=== PATIENT | male | born 1955 | race Caucasian/White ===

== ENCOUNTER 2018-03-22 09:58 | Outpatient (CLI) | payer OTHER, SELFPAY ==
[2018-03-23 10:04] LABS: PSA, Screening 0.6 ng/ml (0-4.5)
== END 2018-03-22 10:18 ==
LOC: LBO 09:59 → LOS 13:50
PROVIDERS: PCP Emergency Medicine; Visit Provider Emergency Medicine
DX: N40.0 Benign prostatic hyperplasia without lower urinary tract symptoms (principal); Z12.5 Encounter for screening for malignant neoplasm of prostate
CPT/HCPCS: 36415; 84153

== ENCOUNTER 2018-09-22 11:02 | Outpatient (CLI) | payer OTHER, SELFPAY ==
[2018-09-22 13:16] LABS: TSH 3.36 uIU/mL (0.358-3.74)
== END 2018-09-22 11:22 ==
PROVIDERS: PCP Emergency Medicine; Visit Provider Emergency Medicine
DX: E03.9 Hypothyroidism, unspecified (principal)
CPT/HCPCS: 36415; 84443

== ENCOUNTER 2019-03-28 07:00 | Outpatient (CLI) | payer OTHER, SELFPAY ==
[2019-03-28 11:11] LABS: HCT 45.8 % (40.0-50.0); HGB 15.7 g/dL (13.5-17.5); Mean Corp. HGB Concentration 34.3 g/dL (32.0-36.0); Mean Corpuscular Volume 84.5 fL (80-95); Mean Platelet Volume 10.4 fL (8.0-11.0); Platelet Count 205 x1000/uL (130-400); RBC 5.42 m/cumm (4.50-6.00); RBC Distribution Width 13.7 % (11.8-14.1); White Blood Cell Count 7.63 k/cumm (4.4-10.8)
[2019-03-28 11:58] LABS: Hemoglobin A1C 5.9 % (4.5-6.2)
[2019-03-28 12:29] LABS: ESR 8 mm/hr (1-20)
[2019-03-28 15:21] LABS: ALT 28 U/L (16-63); AST 12 U/L (15-37); Albumin 4.5 g/dL (3.4-5.0); Alkaline Phosphatase 76 U/L (46-116); Anion Gap 8.9 mmol/L (3-11); BUN 22 mg/dL (7-18); Bilirubin, Total 0.5 mg/dL (0.2-1.0); C-Reactive Protein 0.16 mg/dL (0.0-0.3); CO2 29.1 mmol/L (21.0-32.0); CREATININE 0.95 mg/dL (0.70-1.30); Calcium 9.2 mg/dL (8.5-10.1); Chloride 103 mmol/L (98-107); Glucose 104 mg/dL (70-100); Potassium 3.8 mmol/L (3.5-5.1); Sodium 141 mmol/L (136-145); TSH 2.87 uIU/mL (0.36-3.74); Total Protein 8.2 g/dL (6.4-8.2)
[2019-03-28 16:39] LABS: Vitamin B12 960 pg/mL (193-986)
[2019-03-29 11:19] LABS: Lyme Ab w Rflx to Lyme Confirm Negative
[2019-03-29 13:46] LABS: Albumin 58.7 % (55.8-66.1); Total Protein 8.2 g/dl (6.3-8.2)
== END 2019-03-28 07:20 ==
PROVIDERS: PCP Emergency Medicine; Visit Provider Emergency Medicine
DX: G62.9 Polyneuropathy, unspecified (principal); E03.9 Hypothyroidism, unspecified; M25.50 Pain in unspecified joint; R07.1 Chest pain on breathing; E11.9 Type 2 diabetes mellitus without complications
CPT/HCPCS: 36415; 80053; 85027; 85652; 82607; 83036; 84165; 84443; 86140; 86618

== ENCOUNTER 2020-02-05 02:00 | Outpatient (CLI) | payer MEDICARE, SELFPAY ==
[2020-02-05 09:10] LABS: Anion Gap 11.3 mmol/L (3-11); BUN 14 mg/dL (7-18); CO2 27.7 mmol/L (21.0-32.0); CREATININE 1.06 mg/dL (0.70-1.30); Calculated LDL 109 mg/dL (<100); Chloride 103 mmol/L (98-107); Cholesterol 218 mg/dL (<200); Glucose 182 mg/dL (74-106); HDL Cholesterol 35 mg/dL (40-60); Potassium 3.7 mmol/L (3.5-5.1); Sodium 142 mmol/L (136-145); TSH 3.74 uIU/mL (0.36-3.74); Triglyceride 372 mg/dL (<150)
== END 2020-02-05 02:20 ==
PROVIDERS: PCP Emergency Medicine; Visit Provider Emergency Medicine
DX: E03.9 Hypothyroidism, unspecified (principal); I10 Essential (primary) hypertension
CPT/HCPCS: 36415; 80048; 80061; 84443

== ENCOUNTER 2020-02-07 08:32 | Outpatient (CLI) | payer MEDICARE, SELFPAY ==
[2020-02-07 13:11] LABS: Glucose 98 mg/dL (74-106)
== END 2020-02-07 08:52 ==
PROVIDERS: PCP Emergency Medicine; Visit Provider Emergency Medicine
DX: E11.65 Type 2 diabetes mellitus with hyperglycemia
CPT/HCPCS: 36415; 82947; 83036

== ENCOUNTER → 2020-03-28 10:01 | Outpatient (BNVA) | payer MEDICARE, OTHER, SELFPAY | PROVIDERS: PCP Emergency Medicine; Referring Provider Emergency Medicine; Visit Provider Physical Therapy Assistant | DX: Z12.11 Encounter for screening for malignant neoplasm of colon (principal); I10 Essential (primary) hypertension ==

== ENCOUNTER 2020-04-18 11:21 | Day surgery (SDC) | payer OTHER, SELFPAY ==
[2020-04-18 11:40] VITALS: BP 133/88; PULSE 75; RESP 16; TEMP 36.2; O2SAT 99
[2020-04-18] MEDS: Lactated Ringers 1,000 ML 80 ML IV (11:55)
--- NOTE | 2020-04-18 13:42 | W.COLOREPORT ---
Date of service: 04/18/20 Time of Service: 13:42 Colonoscopy Report Date of procedure: 04/18/20 Pre-op diagnosis general: crc screen Post-op diagnosis procedure note: other (polyps/diverticula ) Procedure: ce w/ polypectomy Surgeon: Catherine Fraga Anesthesia proc note operative: GETA Estimated blood loss (mL): 1 Pathology: other Complications: None Disposition: same day Prep: Miralax/Dulcolax Retraction Time: 12 mins Procedure Description: After informed consent was obtained the patient was taken to the procedure room and placed in a left decubitous position. Monitors were applied and a time out was done. The patients name, date of , procedure, allergies to medications and metal in their body was reviewed. The patient was then sedated. Once sedated and comfortable a rectal exam was done. External exam was normal. Internal exam revealed a normal sphincter tone and no palpable masses. The prostate. The scope was then introduced and retrofelexed. Grade I internal hemorrhoids were identified. The scope was then advanced to the cecum w/out difficulty. The TI and appendiceal orifice were identified. The prep was good. The scope was then slowly retracted over 12] minutes back into the rectum. Polyps were removed at 20cm- <5mm i size. This is removed with a cold biting forcep. All specimen is retrieved and no bleeding is noted. He has moderate diverticular disease confined to the sigmoid colon. There is no signs of active bleeding or infection. The scope was removed and the patient was woken up and taken back to Same day surgery in stable condition. The patient tolerated the procedure well and there were no immediate complications. Follow up: The patient should follow up in 5 years-path pd, patient is still healthy from an anesthetic standpoint, or unless they develop changes in bowel habits or other new gastrointestinal complaints.
--- NOTE | 2020-04-18 13:44 | PDOC.DSDIS_ITS ---
Discharge Plan Disposition Patient Disposition: HOME Condition: Good Discharge Details Reason For Visit: colon scope Attending Provider: Catherine Fraga Primary Care Provider: Brian Salazar Home Meds and New Rx's Prescriptions: Continued ketoconazole 2 % cream 1 applic TP DAILY RF: 0 losartan 50 mg tablet 50 mg PO DAILY Qty: 90 RF: 3 levothyroxine 125 mcg capsule 125 mcg PO DAILY Qty: 90 RF: 3 hydrochlorothiazide 25 mg tablet 25 mg PO DAILY Qty: 90 RF: 3 Discontinued polyethylene glycol 3350 17 gram/dose powder 238 g PO ONCE Qty: 238 RF: 0 bisacodyl [Dulcolax (bisacodyl)] 5 mg tablet,delayed release (DR/EC) 5 mg PO ONCE Qty: 4 RF: 0 Discharge Instructions Additional Instructions: Findings:polyp x1 diverticular Dx Follow up: We will send a letter with the pathology results from the polyp and when to repeat the colonoscopy, usually in 2 to 3 weeks. Follow a high-fiber diet and avoid straining to move the bowels. Please call if you develop: fevers >101.5 Nausea or Vomiting Abdominal pain that is not transient DAY SURGERY UNIT POST COLONOSCOPY INSTRUCTIONS 1. Because there will be medication in your system for the next 24 hours, you may feel a little sleepy. Your coordination will be affected. Therefore: a. Do not drive or operate dangerous equipment for 24 hours. b. Do not drink alcohol beverages for 24 hours (not even beer). c. Plan to go home and rest for the day. 2. Generally there are no restrictions on your activity after a day or so has gone by, but you may feel a bit fatigued for a few days. 3 After you arrive home you may have a light meal and return to a normal diet as you can tolerate it without feeling sick to your stomach. 4. After surgery, you may feel pain or discomfort. This should be only transient, but if it persists please contact your doctor. 5. If there are any questions regarding the findings of your procedure, please feel free to contact your doctor. 6. If you are unable to contact your doctor with a problem, contact the hospital at [phone]. 7. Continue all your regular medications unless directed otherwise. I understand the above instructions and have no questions. Signature of Patient or Responsible Adult Escort Date/Time Name of Responsible Adult Escort Signature of Nurse Date/Time DIVERTICULAR DISEASE OVERVIEW ? A diverticulum is a pouch-like structure that can form through points of weakness in the muscular wall of the colon (ie, at points where blood vessels pass through the wall). Diverticulosis affects men and women equally. The risk of diverticular disease increases with age. It occurs throughout the world but is seen more commonly in developed countries. WHAT IS DIVERTICULAR DISEASE? Diverticulosis ? Diverticulosis merely describes the presence of diverticula. Diverticulosis is often found during a test done for other reasons, such as flexible sigmoidoscopy, colonoscopy, or barium enema. Most people with diverticulosis have no symptoms and will remain symptom free for the rest of their lives. A person with diverticulosis may have diverticulitis, or diverticular bleeding. Diverticulitis ? Inflammation of a diverticulum (diverticulitis) occurs when there is thinning and breakdown of the diverticular wall. This may be caused by increased pressure within the colon or by hardened particles of stool, which can become lodged within the diverticulum. The symptoms of diverticulitis depend upon the degree of inflammation present. The most common symptom is pain in the left lower abdomen. Other symptoms can include nausea and vomiting, constipation, diarrhea, and urinary symptoms such as pain or burning when urinating or the frequent need to urinate. Diverticulitis is divided into simple and complicated forms. ?Simple diverticulitis, which accounts for 75 percent of cases, is not associated with complications and typically responds to medical treatment without surgery. ?Complicated diverticulitis occurs in 25 percent of cases and usually requires surgery. Complications associated with diverticulitis can include the following: ?Abscess ? a localized collection of pus ?Fistula ? an abnormal tract between two areas that are not normally connected (eg, bowel and bladder) ?Obstruction ? a blockage of the colon ?Peritonitis ? infection involving the space around the abdominal organ ?Sepsis ? overwhelming body-wide infection that can lead to failure of multiple organs Diverticular bleeding ? Diverticular bleeding occurs when a small artery located within a diverticulum is eroded and bleeds into the colon. Diverticular bleeding usually causes painless bleeding from the rectum. In approximately 50 percent of cases, the person will see maroon or bright red blood with bowel movements. Is bleeding with a bowel movement normal? ? It is not normal to see blood in a bowel movement; this can be a sign of several conditions, most of which are not serious (eg, hemorrhoids) but some of which are serious and require immediate treatment. Anyone who sees blood after a bowel movement should consult with their healthcare provider to determine if further testing or evaluation is needed. DIVERTICULOSIS AND DIVERTICULITIS DIAGNOSIS ? Diverticulosis is often found during tests performed for other reasons. ?Barium enema ? This is an x-ray study that uses barium in an enema to view the outline of the lower intestinal tract. This is an older test and has been largely replaced by computed tomography (CT) scan. ?Flexible sigmoidoscopy ? This is an examination of the inside of the sigmoid colon with a thin, flexible tube that contains a camera. ?Colonoscopy ? This is an examination of the inside of the entire colon. ?CT scan ? A CT scan is often used to diagnose diverticulitis and its complications. If diverticulitis (not just diverticulosis) is suspected, the above three tests should not be used because of the risk of perforation. TREATMENT Diverticulosis ? People with diverticulosis who do not have symptoms do not require treatment. However, most clinicians recommend increasing fiber in the diet, which can help to bulk the stools and possibly prevent the development of new diverticula, diverticulitis, or diverticular bleeding. Fiber is not proven to prevent these conditions in all patients but may help to control recurrent episodes in some. Increase fiber ? Fruits and vegetables are a good source of fiber. Fiber content of packaged foods can be calculated by reading the nutrition label. Seeds and nuts ? Patients with diverticular disease have historically been advised to avoid whole pieces of fiber (such as seeds, corn, and nuts) because of concern that these foods could cause an episode of diverticulitis. However, this belief is completely unproven. We do not suggest that patients with diverticulosis avoid seeds, corn, or nuts. Diverticulitis ? Treatment of diverticulitis depends upon how severe your symptoms are. Home treatment ? If you have mild symptoms of diverticulitis (mild abdominal pain, usually left lower abdomen), you can be treated at home with a clear liquid diet and oral antibiotics. However, if you develop one or more of the following signs or symptoms, you should seek immediate medical attention: ?Temperature >100.1?F (38?C) ?Worsening or severe abdominal pain ?An inability to tolerate fluids Hospital treatment ? If you have moderate to severe symptoms, you may be hospitalized for treatment. During this time, you are not allowed to eat or drink; antibiotics and fluids are given into a vein. If you develop an abscess of the colon, you may require drainage of the abscess (usually performed by placing a drainage tube across the abdominal wall) or by surgically opening the affected area. Surgery ? If you develop a generalized infection in the abdomen (peritonitis), you will usually require an emergency operation. A two-part operation may be necessary in some cases. ?The first operation involves removal of the diseased colon and creation of a colostomy. A colostomy is an opening between the colon and the skin, where a bag is attached to collect waste from the intestine. The lower end of the colon is temporarily sewed closed to allow it to heal. ?Approximately three to six months later, a second operation is performed to reconnect the two parts of the colon and close the opening in the skin. You are then able to empty your bowels through the rectum. Sometimes patients require up to a year to recover from the first operation, depending on how sick they were. In non-emergency situations, the diseased area of the colon can be removed and the two ends of the colon can be reconnected in one operation, without the need for a colostomy. Surgery versus medical therapy ? An operation to remove the diseased area of the colon may be necessary if you do not improve with medical therapy. After an episode of uncomplicated diverticulitis, elective surgery is generally not required as the risk of another attack or requiring emergency surgery is low. However, patients with persistent symptoms attributable to diverticulitis, a history of complicated diverticulitis, or a compromised immune system should be evaluated for possible surgery to prevent another attack. In such patients, another attack has been associated with a higher risk of complications or . Of course, the decision will also depend in part upon your other medical conditions and ability to undergo surgery. In many cases, an elective operation can be performed laparoscopically, using small incisions, rather than the typical vertical (up and down) abdominal incision. Laparoscopic surgery usually allows you to recover more quickly and shortens the hospital stay. After diverticulitis resolves ? After an episode of diverticulitis resolves, if you have not had a recent colonoscopy, the entire length of the colon should be evaluated to determine the extent of disease and to rule out the presence of abnormal lesions such as polyps or cancer. Recommended tests include colonoscopy, barium enema and sigmoidoscopy, or CT colonography. Diverticular bleeding ? Most cases of diverticular bleeding resolve on their own. However, some people will need further testing or treatment to stop bleeding, which may include a colonoscopy, angiography (a treatment that blocks off the bleeding artery), bleeding scan, or surgery. DIVERTICULAR DISEASE PROGNOSIS Diverticulosis ? Over time, diverticulosis may cause no problems or it may cause episodes of bleeding and/or diverticulitis. Approximately 15 to 25 percent of people with diverticulosis will develop diverticulitis, while 5 to 15 percent will develop diverticular bleeding. Diverticulitis ? Approximately 85 percent of people with uncomplicated diverticulitis will respond to medical treatment, while approximately 15 percent of patients will need an operation. After successful treatment for a first attack of diverticulitis, one-third of patients will remain asymptomatic, one- third will have episodic cramps without diverticulitis, and one-third will go on to have a second attack of diverticulitis. The prognosis tends to remain similar following a second attack of diverticulitis. Only 10 percent of people remain symptom-free after a second attack. Subsequent attacks tend to be of similar severity, not increasing in severity as previously believed. High Fiber Diet What is Dietary Fiber? All fiber comes from plants, bushes, rosy or trees. Of course, the ones that we eat provide us with fruits, vegetables and grains. There are many different types of fiber but the three that are most important to the health of the body are: Insoluble Fiber This fiber does not dissolve in water, nor is it fermented by the bacteria residing in the colon. Rather, it retains water and in so doing, helps to promote a larger, bulkier and more regular bowel activity. This, in turn, may be important in preventing disorder such as diverticulosis and hemorrhoids, and in sweeping out certain toxins and cancer causing carcinogens. Sources of insoluble fiber are: ? whole grain wheat and other whole grains ? corn bran, including popcorn, unflavored and unsweetened ? nuts and seeds ? potatoes and the skins from most fruits from trees such as apples, bananas and avocados ? many green vegetables such as green beans, zucchini, celery and cauliflower ? some fruit plants such as tomatoes and kiwi Soluble Fiber These fibers are fermented or used by the colon bacteria as a food source or nourishment. When these good bacteria grow and thrive, many health benefits occur in both the colon and the body. Soluble fiber is present in some degree in most edible plant foods, but the ones with the most soluble fiber include: ? legumes such as peas and most beans, including soybeans ? oats, rye and barley ? many fruits such as berries, plums, apples bananas and pears ? certain vegetables such as broccoli and carrots ? most root vegetables ? psyllium husk supplement products Prebiotic Soluble Fiber These are relatively newly discovered soluble plant fibers. The technical name for this fiber is inulin or fructan. When these soluble fibers are fermented by the good colon bacteria, some further significant health benefits have been shown to occur by research in many medical centers. These soluble prebiotic fibers occur in significant amounts in: ? asparagus ? yams ? onions ? garlic ? bananas ? leeks ? agave ? chicory and other root vegetables such as [place] artichokes ? wheat, rye and barley (smaller amounts) Benefits of a High Fiber Diet The health benefits of a high fiber diet, consumed on a regular basis and reaching recommended amounts (below), are now fairly well-defined. There are some additional benefits in the early research stage with the prebiotic soluble fibers. What is now known regarding a high fiber diet include: Bowel Regularity A high fiber diet promotes regularity with a softer, bulkier and regular stool pattern. This decreases the chance of hemorrhoids, diverticulosis and perhaps colon cancer. Cholesterol and Reduced Triglycerides The soluble fibers are the ones that will reduce cholesterol levels when used on a regular basis. Psyllium husk and prebiotic soluble fiber will also reduce cholesterol. They may also reduce the incidence of coronary heart disease. Oats, flax seeds and legumes or beans are the recommended fibers. Colon Polyps and Cancer It is still not certain if a high fiber diet helps prevent colon cancer. Considerable research suggests that this may occur. Certainly it makes sense to increase regularity and so speed the movement of cancer causing carcinogens through the bowel. In addition, reducing a heavy meat diet reduces the bile flow from the liver in a favorable way. This, too, reduces the amount of carcinogens that reach and are manufactured in the colon. Finally, a high fiber diet, including prebiotic soluble fiber, increases the integrity and health of the wall of the colon. The risk of cancer may be reduced. Colon Wall Integrity A high fiber diet changes the bacterial makeup of the colon toward a more favorable balance. For instance, it is known that those people with obesity, diabetes type 2 and inflammatory bowel disease have a predominance of bad bacteria in the colon. This, in turn, may render the bowel wall weak and allow bacteria and, indeed, even toxins to seep through. A high fiber diet with a modest reduction in animal and meat products may return the bacterial makeup to a more positive balance. This, in particular, has been seen when the soluble fiber prebiotics are added to the diet. Blood Sugar Soluble fiber such as in legumes (beans), oats and in prebiotic fibers slows the absorption of blood sugar and so helps regulate the sugar in the blood. Insoluble fiber on a regular basis is associated with reduced risk of type 2 diabetes. Weight Loss High fiber diets are more filling and give a sense of fullness sooner than an animal and meat based diet does. In addition, the soluble prebiotic fibers have been shown to turn off the hunger hormones produced in the wall of the gut and to increase the hormones that give a sense of fullness. Those hormones are made in the wall of the gut. New medical research has shown that the bacterial makeup in the colon in overweight people is abnormal to the extent that they manufacture and absorb almost twice the number of calories through the colon wall as do normals. Prebiotic fibers (below) will help change this hormonal balancein a favorable way. Bacteria and the Function of the Colon The colon finishes the digestive process. Hopefully, the waste products move through in a nice regular manner. Insoluble fibers help this process by retaining water and so producing a bulkier, softer stool, which is easy to pass. The additional role of the colon is to provide a home for an enormous number of micro-organisms, mostly bacteria. Recent research has shown that there are over 1,000 species of bacteria with a total bacterial count ten times the number of cells in the body. These bacteria play a major role in keeping the colon wall itself healthy. In addition, these good bacteria produce a very strong immune system for the body. They significantly increase calcium absorption and bone density. They provide other documented benefits. It is the soluble fibers in the diet that are so effective in stimulating the growth of good colon bacteria. How Much is Enough? The amount of fiber in food is measured in grams. National nutritional authorities recommend the following amounts of dietary fiber daily. Under Age 50 Over Age 50 Men 38 grams 30 grams Women 25 grams 21 grams For a week or so, it is best to tally the amount of fiber you are consuming. Boxed and packaged foods will have the amount of fiber per serving on the nutrition label. Which Fibers and Which Foods are Best? As noted, healthy fiber is only found in plants. The three major categories are whole grains, fruits and vegetables. Whole Grains Wheat, oats, barley, wild or brown rice, amaranth, buckwheat, bulgur, corn, millet, quinoa, rye, sorghum, teff and triticals. By far, wheat, oats and wild or brown rice are most common. Always buy whole grain products. White bread, baked goods and rolls almost always are made from wheat flour. Wheat flour is white because most of the fiber, vitamins and other nutrients have been removed. Try not buy enriched grains. What this means is that simple white flour has had vitamins added to it by the pinball machine repairer. The word, enriched, implies a good and healthy product. On the contrary, enriched means that most of the fiber has been removed and a few vitamins added. Fruits Fruits come from trees such as apple and pear or from bushes or rosy. You should eat a wide variety of fruits, preferably with every meal. In many cases, the skin of a fruit such as apple will contain much of the insoluble fiber while the pulp contains most of the soluble fiber. To the extent possible, buy organic fruits as these will have little or no pesticides. Always wash fruit. Vegetables Eat a wide variety of vegetables. They should be a mainstay of lunch and d inners. Frozen vegetables retain as much nutrition and fiber as fresh vegetables. As with fruit, try to buy organic to reduce any residual pesticide ingestion. Wash fresh vegetables thoroughly. Cruciferous vegetables such as broccoli, [place] sprouts and cauliflower contain certain chemicals such as sulforaphane. This substance has very strong anti-cancer properties and should be eaten frequently. Legumes, Beans, Peas and Soybeans These vegetables have plenty of soluble fiber and should be part of a varied vegetable intake. Beans, in particular, contain a certain type of fiber that may lead to harmless gas or bloating. Nuts and Seeds These are rich sources of fiber and are a good substitute for sweets such as candies and baked sweet goods. While nuts and seeds are rich in fiber, they also contain vegetable fat and so can and do add calories. Read the Labels As noted, fresh and frozen foods are usually better. They have good nutrition and few, if any, chemicals added to them. When buying packaged foods and, in particular grains, look for three things: ? The first word on the label should be whole, such as whole wheat or whole grain. ? Check out the calories and the amount of fiber in a serving. ? How many and what other additives or chemicals are added. Fewer is always better. Do you know what each additive does? Some are added not for the benefit of the resident buyer but rather for manufacturers. These could and do include sugar, artificial flavor, chemicals to prevent oxidation and spoilage, emulsifiers to blend the product. You have to be a road mender. Fiber Facts, Nuggets and Pearls ? For breakfast you can easily get the day started well by using a high fiber, whole grain cereal. Check the labels. Add fruit such as blueberries and bananas. If you are an egg eater, use whole wheat or grain toast. Adding wheat germ gives you a good fiber kick. ? Always use whole grain or wheat with rolls and sandwiches. Does your fast food store not have them? Perhaps you look elsewhere. Eating an occasional black villaseñor or veggie burger provides variety. ? Snacks should consist of fruit and/or nuts. While nuts are loaded with fiber, they are an energy rich food, meaning they have a lot of calories in a small packet. ? Fruit juices should contain pulp. Clear juices such as clear orange, pear or apple juice contain little fiber and have a lot of fructose. Prune juice is usually high in fiber. ? Homemade soups ? adding fresh or frozen vegetables to a chicken or vegetable stock is a good way to start homemade soup. ? Salads ? adding cooked and then chilled vegetables provide great flavoring to almost any salad. Remember, a martin salad has lots of cooked corn in it. Small slices of apples or oranges and nuts such as chopped walnuts or sliced almonds always adds taste, variety and fiber to almost any salad. ? Fruit ? Try to eat fruit of some type with almost every meal. ? Rethink how you place the various foods on your dinner plate. Reducing the portions of the meat or animal food portion to the side with equal or more portions of vegetables, legumes and fruits portion always allows for more fiber. There was never anything magic about making the meat or animal food portion the main part of the dinner plate. Eating from smaller plates can, over time, trick your mind and group home habit of using a dinner plate. Again, there is nothing magic in an 11, 12, or 13 inch dinner plate. Fiber Supplements There are a variety of fiber supplements available on the food or pharmacy shelves. Psyllium This soluble plant fiber has been used in [place] for over 2,000 years. It is a soluble fiber with mucilage in it. This acts to retain a lot of water and also is fermented by colon bacteria. When 7 grams a day are used, it does lower cholesterol. Metamucil in various forms is psyllium. Methyl Cellulose All the cellulose products come from finely ground wood chips which are then treated in a variety of ways such as boiling in acids. Methyl cellulose is an i nsoluble fiber which does dissolve in water. It is also an emulsifier, meaning it blends oils and water. Citrucel is methyl cellulose (MC). MC may not be appropriate for Crohn?s disease or ulcerative colitis as several medical studies have shown that certain emulsifiers dissolve the mucous lining of the colon in animals prone to Crohn?s disease. This then allows bacteria to invade the underlying tissue. Inulin Inulin is a soluble prebiotic fiber found in many foods and which are fermented mostly in the left side of the colon. It is available in a supplement as generic inulin and in Fiber Choice. Oligofructose FOS These are also prebiotic fibers. They are fermented very quickly in the right side of the colon. Prebiotin This product is a combination of oligofructose, which feeds the bacteria in the right side of the colon and inulin, which does the same in the left side of the colon. There seems to be a benefit for this particular formula based on medical research. Prebiotic Soluble Fiber These may be the healthiest of all the soluble fibers. They grow in many plants and have had a great deal of research done on them in the last 10-15 years. These fibers are found in asparagus, yams and other root vegetables such as chicory, garlic, onion, leeks and in smaller amounts in wheat. This research has shown the following: ? Increase in good and decrease in bad colon bacteria ? Increase calcium absorption and enhanced bone mass ? Enhanced immune system ? Appetite and weight control by changing the hormone appetite signals to the brain ? May decrease colon cancer incidence ? Reduce or correct a leaky colon Eating a wide variety of plant food up to the recommended amount will likely give you enough prebiotic fiber. Supplements such as Prebiotin can be added to the diet. Short Chain Fatty Acids (SCFA) Some rather remarkable research findings have shown that one of the benefits of ingesting a lot of soluble fiber, in particular the prebiotic ones, results in larger amounts of SCFAs in the colon. These SCFAs are made by the good bacteria in the colon such as Bifidobacter and Lactobacillus. These small molecules have been shown to do the following: ? Enhance the health and integrity of the colon wall ? Provide nourishment for the cells that actually line the colon ? Increases the acidity of the colon which is a very real health benefit ? Stabilize blood sugar for diabetics ? Reduce blood cholesterol and triglyceride ? Significantly enhance immunity ? May be a benefit for Crohn?s disease and ulcerative colitis patients Fiber and Gas Everyone has intestinal gas and that is a good thing. It means that bacteria, hopefully the good ones, are thriving. The normal amount of flatus passed each day depends on sex and what is eaten. The normal number of flatus is 10-20 times a day. When the bacteria that make intestinal gases are growing, it also means that other good bacteria are using the same fibers to grow and produce multiple health benefits, including the production of healthy short-chain fatty acids. These substances are produced quietly in the colon and produce many health-related outcomes. Soluble fiber should always be used in a gradual manner. If too much is consumed at any one time, then excess, but harmless, intestinal gas can occur. People with irritable bowel syndrome are particularly prone to bloating and mild cramping. In this instance, soluble fiber in the diet or supplement should be used in small doses and increased gradually. Finally, prebiotic fibers tend to cause the production of short-chain fatty acids which acidify the colon. This, in turn, reduces or stops the growth of bacteria that make the smelly hydrogen sulfide gases that produce noxious flatus. People who consume many vegetables with prebiotics or take a prebiotic fiber supplement often have non-odoriferous flatus. Fiber and Irritable Bowel Syndrome Irritable bowel syndrome (IBS) is one of the most common disorders of the lower digestive tract. The symptoms of IBS can be quite varied. They can be a mix of several symptoms such as constipation, diarrhea, crampy abdominal discomfort, bloating and gas. An attack of IBS can be triggered by emotional tension and anxiety, poor dietary habits and certain medications. It is now known that infections in the intestine can lead to long-term IBS symptoms. Increased amounts of fiber in the diet can help relieve the symptoms of irritable bowel syndrome by producing soft, bulky stools. This helps to normalize the time it takes for the stool to pass through the colon. Recent medical research with newer techniques has shown some surprising and dramatic findings for IBS patients. Specifically, there is a very significant and abnormal shift of bacteria from those that provide health benefits to those bad bacteria that we really do not want in the gut. The technical name for this bad group of bacteria is called Firmicutes. Along with this abnormal bacterial collection, there is a smoldering low-grade inflammation in the gut wall that may contribute to symptoms. The goal for IBS patients should be to gradually increase the soluble dietary fibers in the diet so as to promote the growth of good bacteria and so suppress the bad ones along with the associated inflammation. IBS patients need to be careful of the amount of soluble fiber they consume. The reason for this is that, while the good colon bacteria thrive on these fibers and produce health benefits, other gas-forming bacteria may generate excessive but harmless gas and subsequent bloating. Thus, soluble plant fibers or a dietary prebiotic supplement should be taken in small initial doses and then gradually increased to tolerance. Fiber and Colon Polyps/Cancer Colon cancer is a major health problem. This disease is most common in Western cultures. It is not seen very often in rural cultures where the diet is mostly plant based. Usually, colon cancer starts out as a colon polyp, a benign mushroom-shaped growth. In time it grows, and in some people it becomes cancerous. Colon cancer is usually always curable if polyps are removed when found or if surgery is performed at an early stage. It is now known that people can inherit the risk of developing colon cancer, but diet is important, too. As noted, there is a very low rate of colon cancer in residents of countries where grains are unprocessed and retain their fiber. It seems that in the [place] world, cancer-containing agents (carcinogens) remain in contact with the colon wall for a longer time and in higher concentrations. So, a large bulky stool may act to dilute these carcinogens by moving them through the bowel more quickly. Less carcinogenic exposure to the colon may mean fewer colon polyps and less cancer. A very current review of the entire world?s literature on the effect of fiber on colon polyps and cancer prevention has shown rather clearly that for every 10 grams of fiber added to the diet, there is a 10% reduction in incidence of colon cancer. So the recommended 30 gram fiber diet would result in a 30% less chance of getting these tumors. There are also substances produced in the colon by the good bacteria that seem to retard certain pre-cancer factors from developing. They are called short- chain fatty acids (SCFA). See above for description of SCFAs. A high fiber diet increases these substances. So, the combination of dietary fiber and the production of short-chain fatty acids have a clear health benefit. Fiber and Diverticulosis Prolonged, vigorous contraction of the colon over a long period of time may result in diverticulosis. This increased pressure causes small and, eventually, larger ballooning pockets to form. These pockets by themselves cause no problem. However, sometimes they become infected (diverticulitis) or even break open (perforate) causing infection or inflammation within the abdomen (peritonitis). A high fiber diet increases the bulk in the stool and thereby reduces the pressure within the colon. By so doing, the formation of pockets may be reduced or possibly even stopped. In the past, many physicians were fearful that seeds as in tomatoes, nuts or berries were harmful and could get inside these pockets and rattle around, causing damage. We now know that this has never been the case and that these foods contain lots of fiber and are actually beneficial for diverticulosis patients. Certain bulking agents such as psyllium are traditional types of bulk producing supplements. Psyllium is a soluble fiber. Combining it with insoluble fiber as in wheat bran or corn bran (no gluten) can enhance this bulking effect even more. A product containing a prebiotic, psyllium and wheat bran is probably a very good combination for bowel regularity. Prebiotin Regularity/Diverticulosis is one such product. Activity:: No lifting over 20 pounds or strenuous activity x24 hours. Diet:: Small light meals x24 hours. Discharge Orders Discharge Orders: Discharge Order (Routine); Ordered 04/18/20 Ordered By: Catherine Fraga DS: Diagnosis Discharge Diagnosis (1) Diverticulosis of colon without diverticulitis: Status: Acute (2) Polyp of colon, adenomatous: Status: Acute
[2020-04-18 14:02] VITALS: BP 119/68; PULSE 71; RESP 16; TEMP 36.3; O2SAT 97
--- NOTE | 2020-04-18 15:30 | BOWEL_PTH ---
PATIENT: Henrique Balderas LOC: [facility] U#:[id number] AGE/SX: 65/M ROOM: RE04/18/[address]: Catherine Fraga : 1955 BED: DIS: 04/18/2020 SPEC #: [id number] RECD: 04/18/20 17:27 STATUS: TRUONG REQ #: [id number] MARINO: 04/18/20 15:[address]: Catherine Fraga DEPT: Surgical Specimen RECD BY: Tori Ernandez ENTERED: 04/18/20 17:28 SP TYPE: Bowel OTHR DR: Brian Salazar DO Tissues: 1 - BIOPSY BOWEL Procedures: GROSS AND MICRO LEVEL 4 Comments: [id number]
== END 2020-04-18 14:38 | disposition home or self-care (01) ==
PROVIDERS: PCP Emergency Medicine; Visit Provider Surgery
PROC: 0DJD8ZZ Inspection of Lower Intestinal Tract, Via Natural or Artificial Opening Endoscopic (ICD-10-PCS; CPT 45378; principal; 2020-04-18 13:00)
DX: Z12.11 Encounter for screening for malignant neoplasm of colon (principal); K57.30 Diverticulosis of large intestine without perforation or abscess without bleeding; K63.5 Polyp of colon; K64.0 First degree hemorrhoids
CPT/HCPCS: 45380; 88305; J2001

== ENCOUNTER 2020-05-21 18:08 | Outpatient (CLI) | payer OTHER, SELFPAY ==
--- NOTE | 2020-05-21 13:15 | DI.RAD_ITS ---
EXAM: XR CERVICAL SPINE COMP 4-5V CLINICAL HISTORY: left neck pain, cervicalgia, M54.2. TECHNIQUE: 2D digital imaging was performed. COMPARISON: No exams were available for comparison FINDINGS: BONES: No fracture or destructive lesion. Vertebral bodies are unremarkable. DISKS: Small endplate osteophytes are seen throughout the cervical spine. Mild degenerative changes of the facets are also noted throughout. There is mild narrowing of the left C3-C4 and bilateral C4- C5 neural foramen. ALIGNMENT: Cervical spinal alignment is within normal limits. The odontoid and atlantoaxial articulat ions are normal. SOFT TISSUE: Normal. The lung apices are clear. IMPRESSION: Mild degenerative changes of the cervical spine. DATA REPOSITORY: RADIATION DOSE DELIVERED:
== END 2020-05-21 18:28 ==
PROVIDERS: PCP Emergency Medicine; Visit Provider Emergency Medicine
DX: M47.812 Spondylosis without myelopathy or radiculopathy, cervical region (principal)
CPT/HCPCS: 72050

== ENCOUNTER 2020-07-30 11:23 | Outpatient (REF) | payer MEDICARE, BC, SELFPAY ==
[2020-07-30 13:54] LABS: Anion Gap 5.9 mmol/L (3-11); BUN 19 mg/dL (7-18); CO2 30.1 mmol/L (21.0-32.0); CREATININE 1.09 mg/dL (0.70-1.30); Calcium 8.9 mg/dL (8.5-10.1); Chloride 104 mmol/L (98-107); Glucose 97 mg/dL (74-106); Potassium 3.9 mmol/L (3.5-5.1); Sodium 140 mmol/L (136-145)
[2020-07-30 14:02] LABS: Hemoglobin A1C 5.9 % (<5.7)
== END 2020-07-30 11:43 ==
LOC: LBN 11:23
PROVIDERS: PCP Emergency Medicine; Visit Provider Emergency Medicine
DX: I10 Essential (primary) hypertension (principal); E11.9 Type 2 diabetes mellitus without complications
CPT/HCPCS: 80048; 83036

== ENCOUNTER 2021-03-04 04:58 | Outpatient (CLI) | payer MEDICARE, BC, SELFPAY ==
[2021-03-04 09:33] LABS: TSH 3.13 uIU/mL (0.36-3.74)
[2021-03-04 17:46] LABS: PSA, Diagnostic 0.8 ng/mL (0.0-4.5)
== END 2021-03-04 04:59 | disposition home or self-care (01) ==
LOC: LBO 04:58
PROVIDERS: PCP Emergency Medicine; Visit Provider Emergency Medicine
DX: E03.9 Hypothyroidism, unspecified (principal); N40.0 Benign prostatic hyperplasia without lower urinary tract symptoms
CPT/HCPCS: 36415; 84153; 84443

== ENCOUNTER 2022-02-02 18:48 | Emergency (ER) | payer MEDICARE, BC, SELFPAY ==
[2022-02-02 19:07] VITALS: BP 133/77; PULSE 103; RESP 18; TEMP 38.2; O2SAT 97
--- NOTE | 2022-02-02 19:15 | DI.RAD_ITS ---
Exam(s) XR PORTABLE CHEST AP EXAM: XR PORTABLE CHEST AP CLINICAL HISTORY: PUI,Fever, Cough TECHNIQUE: 2D digital imaging was performed of the chest. One image was obtained. An AP view was ob tained. COMPARISON: No exams were available for comparison FINDINGS: MEDIASTINUM: Normal. HEART: Normal. PULMONARY VASCULATURE: Normal. LUNGS: Clear. PLEURAL SPACE: No pleural effusion or pneumothorax. BONE:Within normal limits for the patient's age. OTHER FINDINGS:Normal. IMPRESSION: No acute pulmonary findings. DATA REPOSITORY: RADIATION DOSE DELIVERED:
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
[2022-02-02 20:07] LABS: Source Nasal/Nares
[2022-02-02 20:11] LABS: Abs Immature Grans 0.02 10^3/uL (0.0-0.06); Absolute Basophil Count 0.02 10^3/uL (0.0-0.2); Absolute Lymphocyte Count 0.39 10^3/uL (1.2-3.4); Absolute Neutrophil Count 5.15 10^3/uL (1.2-6.7); Basophils % 0.3; HCT 44.1 % (40.0-50.0); Immature Grans % 0.3; Lymphocytes % 6.3; MCH 29.1 pg (27.0-33.0); MCHC 36.3 % (32.0-36.0); MCV 80 fL (80-95); Monocytes % 9.7; Neutrophils % 83.4; Platelet Count 121 10^3/uL (130-400); RDW 13.2 % (11.8-14.1); RDW-SD 38.6 fL; WBC 6.18 10^3/uL (4.4-10.8)
[2022-02-02 20:34] LABS: ALT 80 U/L (16-63); AST 71 U/L (15-37); Albumin 3.8 g/dL (3.4-5.0); Alkaline Phosphatase 89 U/L (46-116); Anion Gap 11.6 mmol/L (3-11); BUN 20 mg/dL (7-18); Bilirubin, Total 0.9 mg/dL (0.2-1.0); CO2 26.4 mmol/L (21.0-32.0); CREATININE 1.3 mg/dL (0.70-1.30); Calcium 8.7 mg/dL (8.5-10.1); Chloride 95 mmol/L (98-107); Estimated GFR 55.06 (mL/min/1.73m2); Glucose 187 mg/dL (74-106); Magnesium 1.7 mg/dL (1.8-2.4); Sodium 133 mmol/L (136-145); Total Protein 8.1 g/dL (6.4-8.2)
[2022-02-02 20:35] LABS: Potassium 2.9 mmol/L (3.5-5.1)
[2022-02-02 20:52] LABS: Lactate 1.1 mmol/L (0.6-1.4)
--- NOTE | 2022-02-02 20:53 | DI.VRAD_ITS ---
PROCEDURE INFORMATION: Exam: XR Chest Exam date and time: 02/02/2022 8:05 PM Age: 67 years old Clinical indication: Cough and fever; Additional info: Cough, fever TECHNIQUE: Imaging protocol: Radiologic exam of the chest. Views: 1 view. COMPARISON: CR XR CERVICAL SPINE COMP 4-5V 05/21/2020 1:05 PM FINDINGS: Limitations: Patient positioning is lordotic. Lungs: No pulmonary consolidation is seen. Pleural spaces: No pleural effusion or pneumothorax is demonstrated. Heart/Mediastinum: Heart size is demonstrated. Bones/joints: The visualized bony structures appear grossly intact, as seen. There are osteophytes along the spinal margin. IMPRESSION: No active disease is seen in the chest. Dictated and Authenticated by: Fabio Borjas MD. Ordering:VENESSA Jaramillo MD
[2022-02-02 21:00] LABS: COVID-19 PCR Negative (Negative)
[2022-02-02 22:31] LABS: Bilirubin Small (Negative); Blood Trace-lysed (Negative); Clarity Cloudy (Clear); Glucose Negative (Negative); Ketones Negative (Negative); Leukocyte Esterase Negative (Negative); Nitrite Negative (Negative); Specific Gravity >= 1.030 (1.005-1.025); pH 5.5 (5-8)
[2022-02-02 22:42] LABS: Bacteria Moderate HPF (Negative); C & S Indicated? Yes; Casts 3-5 Fine Granular LPF (Negative); Crystals Few Amorphous HPF (Negative); Epithelial Cells Rare HPF (Negative); Mucus Negative (Negative)
[2022-02-02] MEDS: ACETAMINOPHEN 1,000 MG/100 ML BTL 400 MG IVPB (23:46)
[2022-02-02] MEDS: Magnesium Oxide 400 MG TAB PO (23:47)
[2022-02-02] MEDS: Potassium Chloride Liquid 20 MEQ PKT 40 MEQ PO (23:47)
[2022-02-02] MEDS: Ibuprofen 600 MG TAB PO (23:47)
[2022-02-02] MEDS: POTASSIUM CHLORIDE 10 MEQ/100 ML BAG 100 MEQ IVPB (23:48)
[2022-02-02] MEDS: Normal Saline 1,000 ML 1000 ML IV (23:55)
[2022-02-03] MEDS: Ibuprofen 600 MG TAB (00:50)
[2022-02-03] MEDS: Magnesium Oxide 400 MG TAB (00:52)
[2022-02-03 00:53] VITALS: BP 116/71; PULSE 61; RESP 18; TEMP 36.6; O2SAT 96
== END 2022-02-03 00:56 | disposition home or self-care (01) ==
PROVIDERS: Emergency Provider Registered Nurse Emergency; PCP Nurse Practitioner Family
DX: E87.6 Hypokalemia (principal); R50.9 Fever, unspecified; R05.9 Cough, unspecified; I10 Essential (primary) hypertension; Z20.822 Contact with and (suspected) exposure to COVID-19; Z79.82 Long term (current) use of aspirin; Z87.891 Personal history of nicotine dependence
CPT/HCPCS: 36415; 80053; 87040; 87635; 96361; 96365; 96375; 99284; 71045; 81003; 81015; 83605; 83735; 85025; 87086; J0131; J3480

== ENCOUNTER 2022-02-09 11:46 | Outpatient (REF) | payer MEDICARE, BC, SELFPAY ==
[2022-02-09 20:56] LABS: Abs Immature Grans 0.08 10^3/uL (0.0-0.06); Absolute Basophil Count 0.05 10^3/uL (0.0-0.2); Absolute Eosinophil Count 0.22 10^3/uL (0.0-0.7); Absolute Lymphocyte Count 1.43 10^3/uL (1.2-3.4); Absolute Monocyte Count 0.93 10^3/uL (0.1-0.8); Basophils % 0.4; Eosinophils % 1.9; HCT 41.1 % (40.0-50.0); HGB 14.2 g/dL (13.5-17.5); Immature Grans % 0.7; Lymphocytes % 12.6; MCH 28.9 pg (27.0-33.0); MCHC 34.5 % (32.0-36.0); MCV 84 fL (80-95); Monocytes % 8.2; Neutrophils % 76.2; RBC 4.92 10^6/uL (4.36-5.78); RDW 13.9 % (11.8-14.1); RDW-SD 42.1 fL; WBC 11.33 10^3/uL (4.4-10.8)
[2022-02-09 20:57] LABS: Absolute Neutrophil Count 8.63 10^3/uL (1.2-6.7)
[2022-02-09 21:16] LABS: Diff Comment PLT Morph Reviewed
[2022-02-11 11:14] LABS: Lyme Ab w Rflx to Lyme Confirm Positive (Negative)
[2022-02-11 13:14] LABS: Lyme IgG Ab Positive (Negative); Lyme IgM Ab Positive (Negative)
[2022-02-15 17:12] LABS: Anaplasma phagocytophilum Negative (Negative); B. miyamotoi PCR Negative (Negative); Babesia divergens/MO-1 Negative (Negative); Babesia duncani Negative (Negative); Babesia microti Negative (Negative); Ehrlichia chaffeensis Negative (Negative); Ehrlichia ewingii/canis Negative (Negative); Ehrlichia muris eauclairensis Negative (Negative)
== END 2022-02-09 11:47 | disposition home or self-care (01) ==
LOC: LBN 11:46
PROVIDERS: PCP Nurse Practitioner Family; Visit Provider Physician Assistant
DX: A69.20 Lyme disease, unspecified (principal)
CPT/HCPCS: 86617; 87798; 85025; 86618

== ENCOUNTER 2022-04-23 02:43 | Outpatient (CLI) | payer MEDICARE, BC, SELFPAY ==
[2022-04-23 16:24] LABS: Hemoglobin A1C 6.2 % (<5.7)
[2022-04-23 16:56] LABS: ALT 26 U/L (16-63); AST 16 U/L (15-37); Albumin 4.2 g/dL (3.4-5.0); Alkaline Phosphatase 74 U/L (46-116); Anion Gap 8.1 mmol/L (3-11); BUN 15 mg/dL (7-18); Bilirubin, Total 0.5 mg/dL (0.2-1.0); CO2 28.9 mmol/L (21.0-32.0); CREATININE 1.2 mg/dL (0.70-1.30); Calcium 9.1 mg/dL (8.5-10.1); Chloride 102 mmol/L (98-107); Estimated GFR 66.28 (mL/min/1.73m2); FREE T4 0.97 ng/dL (0.76-1.46); Glucose 120 mg/dL (74-106); Potassium 3.3 mmol/L (3.5-5.1); Sodium 139 mmol/L (136-145); TSH 2.36 uIU/mL (0.36-3.74); Total Protein 7.9 g/dL (6.4-8.2)
== END 2022-04-23 02:44 | disposition home or self-care (01) ==
LOC: LBO 02:44
PROVIDERS: PCP Nurse Practitioner Family; Visit Provider Nurse Practitioner Family
DX: E03.9 Hypothyroidism, unspecified (principal); I10 Essential (primary) hypertension; R73.03 Prediabetes; R73.9 Hyperglycemia, unspecified; E04.9 Nontoxic goiter, unspecified
CPT/HCPCS: 36415; 80053; 83036; 84439; 84443

== ENCOUNTER → 2022-06-29 01:43 | Outpatient (CLI) | payer MEDICARE, BC, SELFPAY ==
--- NOTE | 2022-06-29 07:00 | DI.US_ITS ---
Exam(s) US THYROID EXAM: US THYROID CLINICAL HISTORY: thyroid goiter,E04.9. TECHNIQUE: Ultrasound thyroid performed using standard protocol. COMPARISON: No exams were available for comparison FINDINGS: ISTHMUS: 3 mm RIGHT LOBE: Size: 6.0 x 2.6 x 2.5 cm Echogenicity: Heterogeneous Vascularity: Normal. Nodules: None. LEFT LOBE: Size: 5.9 x 2.8 x 1.9 cm Echogenicity: Heterogeneous. Vascularity: Normal. Nodules: None. OTHER FINDINGS: No cervical adenopathy detected. IMPRESSION: Enlarged gland with heterogeneous echotexture. No suspicious nodules identified. DATA REPOSITORY:
== END ==
PROVIDERS: PCP Nurse Practitioner Family; Visit Provider Nurse Practitioner Family
DX: E04.8 Other specified nontoxic goiter (principal)
CPT/HCPCS: 76536

== ENCOUNTER 2023-04-27 02:39 | Outpatient (CLI) | payer MEDICARE, BC, SELFPAY ==
[2023-04-27 11:57] LABS: Hemoglobin A1C 5.9 % (<5.7)
[2023-04-27 12:08] LABS: Anion Gap 6.3 mmol/L (3-11); BUN 15 mg/dL (7-18); CO2 29.7 mmol/L (21.0-32.0); Calcium 9.3 mg/dL (8.5-10.1); Calculated LDL 78 mg/dL (<100); Chloride 103 mmol/L (98-107); Cholesterol 154 mg/dL (<200); Estimated GFR 81.98 (mL/min/1.73m2); Glucose 99 mg/dL (74-106); HDL Cholesterol 43 mg/dL (40-60); Potassium 3.8 mmol/L (3.5-5.1); Sodium 139 mmol/L (136-145); TSH (W/Ref FT4) 2.68 uIU/mL (0.36-3.74); Triglyceride 165 mg/dL (<150)
[2023-04-27 22:54] LABS: PSA, Screening 0.9 ng/mL (<=4.5)
== END 2023-04-27 02:40 | disposition home or self-care (01) ==
LOC: LBO 02:39
PROVIDERS: PCP Nurse Practitioner Family; Visit Provider Nurse Practitioner Family
DX: E03.9 Hypothyroidism, unspecified (principal); E78.5 Hyperlipidemia, unspecified; R73.03 Prediabetes; Z12.5 Encounter for screening for malignant neoplasm of prostate
CPT/HCPCS: 36415; 80048; 80061; 84153; 83036; 84443

== ENCOUNTER 2023-11-09 05:41 | Outpatient (CLI) | payer MEDICARE, SELFPAY ==
[2023-11-09 09:02] LABS: Anion Gap 6.3 mmol/L (3-11); BUN 18 mg/dL (7-18); CO2 30.7 mmol/L (21.0-32.0); CREATININE 1.1 mg/dL (0.70-1.30); Calcium 8.9 mg/dL (8.5-10.1); Chloride 104 mmol/L (98-107); Estimated GFR 73.12 (mL/min/1.73m2); Glucose 129 mg/dL (74-106); Potassium 3.7 mmol/L (3.5-5.1); Sodium 141 mmol/L (136-145)
[2023-11-09 09:07] LABS: Hemoglobin A1C 5.8 % (<5.7)
[2023-11-09 20:01] LABS: Hepatitis C Ab w Rflx HCV PCR Reactive (Negative)
[2023-11-10 13:26] LABS: HCV RNA Qualitative Undetected (Undetected)
== END 2023-11-09 05:42 | disposition home or self-care (01) ==
PROVIDERS: PCP Nurse Practitioner Family; Visit Provider Nurse Practitioner Family
DX: I10 Essential (primary) hypertension (principal); R73.03 Prediabetes
CPT/HCPCS: 36415; 80048; 86803; 87522; 83036

== ENCOUNTER 2024-01-14 15:41 | Emergency (ER) | payer MEDICARE, SELFPAY ==
[2024-01-14 15:45] VITALS: BP 151/76; PULSE 81; RESP 18; TEMP 37.4; O2SAT 97
--- NOTE | 2024-01-14 16:13 | W.ED.GENAD ---
Discharge Plan Disposition Patient Disposition: Home Discharge Details Clinical Impression: Immunization, tetanus-diphtheria, Laceration of finger of left hand Primary Care Provider: Alis Reed ED Provider: Omero Hurd Home Meds and New Rx's Prescriptions: Continued multivit with min-folic acid [Centrum Adult 50 Fresh-Fruity] 120 mcg tablet,chewable 1 tab PO DAILY sildenafil [Viagra] 50 mg tablet 50 - 100 mg PO DAILY PRN (Reason: sexual activity) Qty: 30 0RF Rx Instructions: administer 1 to 4 hours before activity triamcinolone acetonide 0.1 % cream 1 applic topical DAILY PRN (Reason: rash) Qty: 80 0RF lisinopril 10 mg tablet 10 mg PO DAILY Qty: 90 3RF ketoconazole 2 % cream 1 applic TP DAILY Qty: 60 0RF levothyroxine 125 mcg capsule 125 mcg PO DAILY Qty: 90 3RF Discharge Instructions Additional Instructions: You are seen in the emergency department for your finger laceration which was closed with glue. Please keep your finger clean dry and dressed for the next 24 hours. Please do not swim or soak your finger for the next 5 days. Please return to emergency department if you develop fevers chills streaking signs of infection or if you have any other concerns. For your pain please take medications as follows: 1. Take acetaminophen (Tylenol), 1,000 mg (two 500 mg tabs) every 6 hours [2. Take ibuprofen (Advil), 400 mg every 6 hours.] Discharge Data Discharge Date/Time-TO BE ENTERED AT DEPARTURE: 01/14/24 17:28 HPI General Date/Time Provider Initiated Documentation: 01/14/24 15:47. HPI Narrative: MDM This is a normothermic and not tachycardic 68-year-old [id number] male with left fingertip laceration/avulsion. Bleeding is controlled. Given significant avulsion will defer primary closure with sutures and he is cyanoacrylate glue as I am concerned that if I sutured the patient's laceration that his avulsion will cease to be viable secondary to decreased perfusion and no longer serve as a natural bandage. No signs of tissue ischemia. No signs of flexor tenosynovitis. Intact range of motion in left fingertips and not concern for ligamentous injury. Patient I discussed keeping his wound clean and dry wrapped. Advised ED return for worsening pain fevers streaking signs of infection. He understood his return indications and was discharged with empiric trial of expectant outpatient management. HPI This is a right hand dominant 68-year-old male arrived to the emergency department in the setting of left middle finger laceration he sustained earlier today. Patient was reportedly using department. He inadvertently lacerated his left middle finger. He was able to rinse it and apply a bandage continued working. His wanted him to be evaluated. He is not sure when his last tetanus was. He is not anticoagulated. He has no decreased range of motion in his left hand. No other injuries. Exam General: Well-appearing in no acute distress speaking in complete sentences. Head: Normocephalic, atraumatic. Eye: Extraocular eye movements intact. No conjunctival injection. No scleral icterus. Ear, nose, mouth, throat: Grossly normal inspection. Normal voice, handling secretions normally. Neck: Trachea midline. Cardiovascular: Well-perfused distal extremities. Respiratory: Nonlabored respiration. Gastrointestinal: Nondistended abdomen. Musculoskeletal: On the palmar surface of the left hand overlying the pad of the middle finger there is an approximately 2 cm avulsion laceration that violates the subcutaneous tissue. No bleeding. Full range of motion of the left long finger across the MCP, DIP, and PIP joints. Cap refill less than 2 seconds in the left fingertips. No signs of flexor tenosynovitis. Skin: Normal for age and race, grossly normal temperature and turgor. No acute rash. Neurologic: Alert and appropriate, no apparent acute deficits. Psychiatric: Mood and manner are appropriate. Grooming and personal hygiene are appropriate. Related Data Home Medications Medication Instructions Recorded Confirmed multivitamin with minerals-folic 1 tab PO DAILY 05/05/21 11/04/23 acid 120 mcg chewable tablet (Centrum Adult 50 Plus Fresh-Fruity) sildenafil 50 mg tablet (Viagra) 50 - 100 mg (1 - 2 x 50 mg) PO 10/07/23 11/04/23 DAILY PRN sexual activity #30 tabs triamcinolone acetonide 0.1 % 1 applic topical DAILY PRN rash 10/07/23 11/04/23 topical cream #80 grams ketoconazole 2 % topical cream 1 applic topical DAILY #60 grams 11/04/23 11/04/23 lisinopril 10 mg tablet 10 mg PO DAILY #90 tabs 11/04/23 11/04/23 levothyroxine 125 mcg capsule 125 mcg PO DAILY #90 caps 11/12/23 Previous Rx's Medication Instructions Recorded sildenafil 50 mg tablet (Viagra) 50 - 100 mg (1 - 2 x 50 mg) PO 10/07/23 DAILY PRN sexual activity #30 tabs triamcinolone acetonide 0.1 % 1 applic topical DAILY PRN rash 10/07/23 topical cream #80 grams ketoconazole 2 % topical cream 1 applic topical DAILY #60 grams 11/04/23 lisinopril 10 mg tablet 10 mg PO DAILY #90 tabs 11/04/23 levothyroxine 125 mcg capsule 125 mcg PO DAILY #90 caps 11/12/23 Allergies Allergy/AdvReac Type Severity Reaction Status Date / Time amlodipine AdvReac Intermediate fatigue Verified 01/14/24 15:48 blurred vision losartan AdvReac Intermediate visual Verified 01/14/24 15:48 blurring General Stated Complaint: Laceration THIAGO: 4 Course Vital Signs Vital signs: Vital Signs Temperature 37.4 C 01/14/24 15:45 Pulse 81 01/14/24 15:45 Respiratory Rate 18 01/14/24 15:45 Blood Pressure 151/76 H 01/14/24 15:45 Pulse Oximetry 97 01/14/24 15:45 Temperature 37.4 C 01/14/24 15:45 Temperature Source Skin 01/14/24 15:45 Pulse 81 01/14/24 15:45 Respiratory Rate 18 01/14/24 15:45 Respiratory Effort Normal 01/14/24 15:47 Blood Pressure 151/76 H 01/14/24 15:45 Blood Pressure Position Sitting 01/14/24 15:45 Pulse Oximetry 97 01/14/24 15:45 Oxygen Delivery Method Room Air 01/14/24 15:45 Oxygen Flow Rate 0 01/14/24 15:45 Procedures Laceration Laceration 1: Site: upper extremity Side (If applicable): left Size (cm): 2 Description: flap Depth: simple, single layer Pre-repair: wound explored Skin layer closed with: other (Closed with cyanoacrylate glue and Steri-Strips) Medical Decision Making Quality:SDOH Health Related Social Needs: No Data to Display PFSH All Active Problems (Updated 01/14/24 @ 16:50 by Omero Hurd MD) Laceration of finger of left hand (Acute) Immunization, tetanus-diphtheria (Acute) Hyperlipidemia (Chronic) Essential hypertension (Chronic) Hypothyroidism (Chronic) Thyroid goiter (Chronic) Prediabetes (Chronic) BPH (benign prostatic hyperplasia) (Chronic) Umbilical hernia (Chronic) Sigmoid diverticulosis (Chronic) Internal hemorrhoids (Chronic) Tinnitus (Chronic) Nail dystrophy (Acute) Erectile dysfunction (Chronic) Medical History Tubular adenoma of colon (~2019) On 2020 colonoscopy Lyme disease (~02/2022) Viral hepatitis C treated with Harvoni. No virus remaining Surgical History History of colonoscopy (04/18/20) S/P eye surgery left with chronic ptosis Status post wrist surgery Left forearm and wrist surgery in 2007 for arthritic type changes. Family History Mother , AGE 86 Essential hypertension Multiple sclerosis Cancer Father , AGE 84 Scleroderma Essential hypertension Brother No problems noted. Maternal Grandfather Alcohol abuse Paternal Grandfather Cancer Alcohol abuse Maternal Grandmother No problems noted. Paternal Grandmother Alcohol abuse Sister Atrial fibrillation Social History (Updated 04/26/23 @ 09:22 by Lavinia Lima) Smoking/Tobacco Use Status: Former Tobacco Use tobacco type: cigarettes Quit Date: 07/12/84 Tobacco: How many years used: 10 Second Hand Exposure: Yes Smoking risk assessment performed?: Yes Alcohol Intake: current Alcohol Intake frequency: a few times a week Alcohol type: beer Drug use: Never Substance use type: does not use Adopted: No Caregiver/Support person: No Foster care: No Household members: spouse Housing: house Communication Needs: None Do you need help understanding health information?: Rarely 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 Pets and animals: Yes Pets and animals: cat(s) Sexually active: No Do you think of yourself as: straight/heterosexual Current gender identity: male What is your relationship status?: How often do you talk on the phone with friends or family?: three or more times per week How often do you get together with friends or relatives?: twice per week Do you belong to any clubs or organized social groups?: yes Panel score (0-1 are the most socially isolated patients): 3 What type of physical activity do you participate in: walking and other Details: Playing golf Duration: 60-90 minutes/day Frequency: 3-4 times per week Jesenia/Gnosticist: None Special jesenia needs: No Agree to transfusion: Yes Seatbelt use: always Drive intox or ride w/intox armored car driver: No Working smoke detector in home: Yes Carbon monox detector in home: Yes Firearms in home: Yes Firearms unloaded and locked: Yes Do you feel safe at home: Yes Do you feel safe in your relationship?: Yes Victim of physical abuse: No Victim of emotional abuse: No Victim of sexual abuse: No Would you like helpful sources: No
== END 2024-01-14 17:28 | disposition home or self-care (01) ==
PROVIDERS: Emergency Provider Emergency Medicine; PCP Nurse Practitioner Family
DX: S61.213A Laceration without foreign body of left middle finger without damage to nail, initial encounter (principal); W27.8XXA Contact with other nonpowered hand tool, initial encounter; Z23 Encounter for immunization; I10 Essential (primary) hypertension; E78.5 Hyperlipidemia, unspecified; E03.9 Hypothyroidism, unspecified; Z79.899 Other long term (current) drug therapy
CPT/HCPCS: 12001; 90471; 90715; 99284; 99283

== ENCOUNTER 2024-07-27 01:15 | Outpatient (CLI) | payer MEDICARE, SELFPAY ==
[2024-07-27 13:01] LABS: Anion Gap 3.3 mmol/L (3-11); BUN 19 mg/dL (7-18); CO2 32.7 mmol/L (21.0-32.0); Calcium 9.5 mg/dL (8.5-10.1); Calculated LDL 94 mg/dL (<100); Chloride 106 mmol/L (98-107); Cholesterol 183 mg/dL (<200); Estimated GFR 81.47 (mL/min/1.73m2); Glucose 91 mg/dL (74-106); HDL Cholesterol 50 mg/dL (40-60); Potassium 4.2 mmol/L (3.5-5.1); Sodium 142 mmol/L (136-145); TSH (W/Ref FT4) 1.58 uIU/mL (0.36-3.74); Triglyceride 196 mg/dL (<150)
[2024-07-27 13:17] LABS: Hemoglobin A1C 5.8 % (<5.7)
[2024-07-28] LABS: HBs Antibody, Quant <3.1 mIU/mL (See Note); Hep B Surface Ab Negative (See Note); Hepatitis B Core Antibody Negative (Negative); Hepatitis B Surface Antigen Negative (Negative)
[2024-07-28 08:51] LABS: HIV-1/2 Ag & Ab Screen Negative (Negative)
== END 2024-07-27 01:16 | disposition home or self-care (01) ==
PROVIDERS: PCP Nurse Practitioner Family; Visit Provider Nurse Practitioner Family
DX: Z11.59 Encounter for screening for other viral diseases (principal); Z00.00 Encounter for general adult medical examination without abnormal findings; E78.5 Hyperlipidemia, unspecified; E03.9 Hypothyroidism, unspecified; R73.03 Prediabetes; Z11.4 Encounter for screening for human immunodeficiency virus [HIV]; Z12.5 Encounter for screening for malignant neoplasm of prostate; I10 Essential (primary) hypertension
CPT/HCPCS: 36415; 80048; 80061; 84153; 86704; 86706; 87340; 87389; 83036; 84443

== ENCOUNTER 2025-02-16 01:05 | Outpatient (CLI) | payer MEDICARE, SELFPAY ==
[2025-02-16 08:08] LABS: Abs Immature Grans 0.03 10^3/uL (0.0-0.06); HCT 43.6 % (40.0-50.0); HGB 14.8 g/dL (13.5-17.5); Immature Grans % 0.5 %; MCH 29.7 pg (27.0-33.0); MCHC 33.9 % (32.0-36.0); MCV 87 fL (80-95); MPV 9.0 fL (8.0-11.0); Platelet Count 195 10^3/uL (130-400); RBC 4.99 10^6/uL (4.36-5.78); RDW 13.0 % (11.8-14.1); RDW-SD 41.4 fL; WBC 6.34 10^3/uL (4.4-10.8)
[2025-02-16 08:11] LABS: Hemoglobin A1C 5.7 % (<5.7)
[2025-02-16 08:45] LABS: ALT 24 U/L (16-63); AST 17 U/L (15-37); Albumin 3.9 g/dL (3.4-5.0); Alkaline Phosphatase 90 U/L (46-116); Anion Gap 7.7 mmol/L (3-11); BUN 20 mg/dL (7-18); Bilirubin, Total 0.7 mg/dL (0.2-1.0); CO2 29.3 mmol/L (21.0-32.0); Calcium 8.8 mg/dL (8.5-10.1); Chloride 105 mmol/L (98-107); Estimated GFR 80.97 (mL/min/1.73m2); Glucose 120 mg/dL (74-106); Potassium 4.3 mmol/L (3.5-5.1); Sodium 142 mmol/L (136-145); Total Protein 7.4 g/dL (6.4-8.2); Vitamin B12 678 pg/mL (193-986)
[2025-02-21 16:27] LABS: Thiamine (Vitamin B1), WB 158 nmol/L (70-180)
== END 2025-02-16 01:06 | disposition home or self-care (01) ==
LOC: LBO 01:05
PROVIDERS: PCP Nurse Practitioner Family; Visit Provider Family Medicine
DX: R20.2 Paresthesia of skin (principal); Z00.00 Encounter for general adult medical examination without abnormal findings; R73.01 Impaired fasting glucose; R73.03 Prediabetes
CPT/HCPCS: 36415; 80053; 82607; 83036; 84425; 85025

== ENCOUNTER → 2025-04-19 10:00 | Outpatient (BNVA) | payer MEDICARE, SELFPAY | PROVIDERS: PCP Nurse Practitioner Family; Referring Provider Nurse Practitioner Family; Visit Provider Psychiatry & Neurology Neurology | DX: G56.03 Carpal tunnel syndrome, bilateral upper limbs (principal) | CPT/HCPCS: 95909 ==

== ENCOUNTER → 2025-05-30 08:48 | Outpatient (BNVA) | payer MEDICARE, SELFPAY | PROVIDERS: PCP Nurse Practitioner Family; Referring Provider Nurse Practitioner Family; Visit Provider Physical Therapy Assistant | DX: Z12.11 Encounter for screening for malignant neoplasm of colon (principal); Z86.0101 Personal history of adenomatous and serrated colon polyps ==

== ENCOUNTER 2025-06-14 06:07 | Day surgery (SDC) | payer MEDICARE, SELFPAY ==
[2025-06-14 06:35] VITALS: BP 138/85; PULSE 76; RESP 14; TEMP 36.8; O2SAT 99
[2025-06-14] MEDS: Lactated Ringers 1,000 ML 80 ML IV (06:40)
--- NOTE | 2025-06-14 07:03 | W.ANESPRE ---
General Info Date of Service Date Performed: 06/14/25 Height: 5 ft 7 in Weight: 81.6 kg Body Mass Index (BMI): 28.1 Surgical Procedure: Operation Date: 06/14/25 07:35 Proposed Procedure Side Surgeon frandy Duncan MD Meds Allergies and Home Medications Allergies Allergy/AdvReac Type Severity Reaction Status Date / Time amlodipine AdvReac Intermediate fatigue Verified 06/14/25 06:26 blurred vision losartan AdvReac Intermediate visual Verified 06/14/25 06:26 blurring Home Medication ?Medication ?Instructions ?Recorded multivitamin with minerals-folic 1 tab PO DAILY 05/05/21 acid 120 mcg chewable tablet (Centrum Adult 50 Plus Fresh-Fruity) sildenafil 50 mg tablet (Viagra) 50 - 100 mg (1 - 2 x 50 mg) PO 10/07/23 DAILY PRN sexual activity #30 tabs lisinopril 20 mg tablet 20 mg PO DAILY #90 tabs 07/26/24 levothyroxine 125 mcg capsule 125 mcg PO DAILY #90 caps 11/07/24 omega-3 fatty acids-fish oil 300 1 cap PO DAILY 04/19/25 mg-1,000 mg capsule Current Visit Medications: Current Medications Generic Name Dose Route Start Last Admin Trade Name Freq PRN Reason Stop Dose Admin Ringer's Solution 1,000 mls @ 80 mls/hr 06/14/25 06:00 06/14/25 06:40 IV 06/14/25 23:59 80 mls/hr INFUSION EDUARDO Administration Sodium Biphosphate/Sodium Phosphate 133 ml 06/14/25 06:00 Na Phosphate Enema-Adult 133 Ml Btl ND 06/14/25 23:59 DIRECTED PRN Sodium Chloride 0 ml 06/14/25 06:00 Normal Saline Flush 10 Ml Syr IV 06/14/25 23:59 PRN PRN Sodium Chloride 0 ml 06/14/25 06:00 Normal Saline 10 Ml Vial IJ 06/14/25 23:59 DIRECTED PRN Sterile Water 0 ml 06/14/25 06:00 Water,Injection,Sterile 10 Ml Vial IJ 06/14/25 23:59 DIRECTED PRN PFSH Active Problems Active Problems: Problem Status Onset Code Bilateral carpal tunnel syndrome Acute G56.03 Asymmetric biceps reflexes Acute R29.2 Right hand paresthesia Acute R20.2 Essential hypertension Chronic I10 Hypothyroidism Chronic E03.9 Thyroid goiter Chronic E04.9 Prediabetes Chronic R73.03 BPH (benign prostatic hyperplasia) Chronic N40.0 Umbilical hernia Chronic K42.9 Sigmoid diverticulosis Chronic K57.30 Internal hemorrhoids Chronic K64.8 Tinnitus Chronic H93.19 Nail dystrophy Acute L60.3 Erectile dysfunction Chronic N52.9 Medical History Medical History Hyperlipidemia Tubular adenoma of colon (~2019) On 2020 colonoscopy Lyme disease (~02/2022) Viral hepatitis C treated with Harvoni. 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 Tobacco Smoking/Tobacco Use Status: Former Tobacco Use Passive smoking exposure: No Second hand exposure: Yes Alcohol Alcohol Intake: current Alcohol intake frequency: a few times a week Alcohol type: beer Substance Use Substance use: Never Substance use type: does not use Vital Signs and Lab Results Vital Signs Most Recent Vital Signs in EMR: Most Recent Vital Signs Temp Pulse Resp BP Pulse Ox 36.8 C 76 14 138/85 99 06/14/25 06:35 06/14/25 06:35 06/14/25 06:35 06/14/25 06:35 06/14/25 06:35 Imaging and Studies Imaging and Studies Study information below may be from another EMR and interpreted by another provider. Please see original notes in EMR for more complete details. Stress Test Summary: Summary: 1. Myocardial perfusion imaging: No myocardial perfusion defects noted. 2. The calculated left ventricular ejection fraction after stress: 55%. LV global systolic function is normal. No left ventricular regional motion abnormality. 3. Stress ECG conclusions: The stress ECG is negative. Cuevas treadmill score: 13. This score predicts a low risk of cardiac events. 4. Stress: The target heart rate was achieved. There is a normal resting blood pressure with an appropriate response to stress. The patient experienced no chest pain during stress. Exercise capacity is above normal for age. 5. Baseline ECG: Sinus bradycardia with 1degrees AV block. Indication: R07.9, Appropriate Use Criteria: A (Appropriate). History: REASON FOR TESTING: PT REPORTED TO HIS PCP THAT HE HAS BEEN EXPERIENCING A NON-RADIATING INTERMITTANT CHEST PAIN WITH NO ASSOCIATED DIAPHORESIS, SOB, NAUSEA/VOMITING. FAMILY HX: MOTHER AND FATHER HAVE HYPERTENSION. MEDICAL HX: CHRONIC HEP C, GOUT, HYPERTRIGLYCERIDEMIA, HYPOTHYROIDISM, SMOKING: FORMER SMOKER. 1 PPD X 10 YEARS, QUIT 30 YEARS AGO. EXCERCISE: GOLFS 1 DAY/WEEK, WALKS THE COURSE. Risk factors: Hypertension. Dyslipidemia. Cholesterol: 182mg/dl. HDL: 37mg/dl. LDL: 70mg/dl. Triglycerides: 387mg/dl. ALLERGIES: NKA MEDICATIONS: ASPIRIN, IBUPROFEN, LEVOTHYROXINE SODIUM, MULTIVITAMIN. Imaging Technique: Protocol: El protocol. Acquisition: Gated SPECT; 1 day - rest/stress. The patient was imaged in the supine position. Attenuation correction used. Isotope administration: - Rest. Tc[99m]-sestamibi. Dose: 9.9mCi. Injection time: 10:05 AM. Injection to stress time: 00:45. - Stress. Tc[99m]-sestamibi. Dose: 32.6mCi. Injection time: 11:50 AM. 1-2 min before end of exercise Baseline ECG: EKG FROM 02/07/16 SHOWED SINUS RHYTHM, NON-SPECIFIC T-ABNORMALITY. TODAYS EKG SHOWED SINUS RHYTHM WITH A 1ST DEGREE BLOCK OF 0.28. HR 58 BPM Sinus bradycardia with 1degrees AV block. Stress protocol: + +---+ + !Stage !HR !BP (mmHg) ! + +---+ + !Baseline supine !58 !154/86 (109)! + +---+ + !Baseline standing !69 !136/82 (100)! + +---+ + !Stage I; 1.7mph, 10degrees; 3 min !104!172/78 (109)! + +---+ + !Stage II; 2.5mph, 12degrees; 3 min !110!180/84 (116)! + +---+ + !Stage III; 3.4mph, 14degrees; 3 min!113!196/70 (112)! + +---+ + !Stage IV; 4.2mph, 16degrees; 3 min !135!200/68 (112)! + +---+ + !Immediate post stress !122!192/60 (104)! + +---+ + !Recovery; 3 min !86 !180/72 (108)! + +---+ + !Recovery; 6 min !83 !150/72 (98) ! + +---+ + * Stress results: Maximal heart rate during stress was 145bpm (91% of maximal predicted heart rate). The maximal predicted heart rate was 159bpm. The target heart rate was achieved. There is a normal resting blood pressure with an appropriate response to stress. The rate-pressure product for the peak heart rate and blood pressure was 20053nm Hg/min. The patient experienced no chest pain during stress. Exercise capacity is above normal for age. Stress ECG: TREADMILL EXERCISE STRESS TEST ENDED IN 12 MINUTES AND 30 SECONDS MAX HR 145, 91% OF TARGET RARE PVCS DURING EXERCISE. INCREASINGLY MORE PVCS DURING STAGE 4 OF EXERCISE. NO ECTOPY IN RECOVERY. NORMAL BP RESPONSE APPROX. METS ACHIEVED: 13.48 NO ANGINA NO ISCHEMIC CHANGES ABOVE AVERAGE FUNCTIONAL CAPACITY The stress ECG is negative. Cuevas treadmill score: 13. This score predicts a low risk of cardiac events. Myocardial perfusion: Imaging information: gated. The image quality was excellent. Left ventricular size is normal. No myocardial perfusion defects noted. Ventricular Function (Wall Motion): The calculated left ventricular ejection fraction after stress: 55%. LV global systolic function is normal. No left ventricular regional motion abnormality. Study data: [id number] Kayleigh Todd MD supervised and was readily available during the procedure. This study was interpreted by [facility]. Study status: Routine. Consent: The risks, benefits, and alternatives to the procedure were explained to the patient and informed consent was obtained. Procedure: Initial setup. A baseline ECG was recorded. Surface ECG leads and manual cuff blood pressure measurements were monitored. Heart sounds: Normal. Lung sounds: Normal. Treadmill exercise testing was performed using the El protocol. Study completion: All catheters inserted during the procedure were removed. The patient tolerated the procedure well and was discharged from the lab. Discharge: The patient left the laboratory in stable condition. Birthdate: Patient birthdate: 1955. Sex: Gender: male. Study date: Study date: 02/26/2016. Study time: 10:00 AM. Signature Documentation: - The imaging portion of this study was interpreted by Nuclear Drill Press Operator Numerical Control Kayleigh Todd MD. - The imaging portion of this study was interpreted by Nuclear Radiologist Casper Garzon MD. - The Stress ECG portion of this study was interpreted by Kayleigh Todd MD. Electronically signed by Kayleigh Todd 02/26/2016 15:21 Ordering provider: Ana Paula Mccabe NP CC: YESENIA VANESSA,PhD,KAYLEIGH Dictated by: CASPER GARZON M.D.02/26/16 1000 <Electronically signed by CASPER GARZON M.D.>02/27/16 0830 Disclaimer: The [facility] radiologist is signing only the Nuclear Medicine MPI Imaging exam portion of the report. Transcribed by: Aamir Bryson Anesthesia Assessment and Plan Anesthesia History Personal History: No History of Anesthesia Complications Family History: No Family History of Anesthesia Complications Exercise Tolerance Exercise Tolerance: Metabolic Equivalents>4 Pertinent Negatives Pertinent Negatives: No Symptoms of GERD, No Major Cardiovascular Symptoms or Complaints and No Major Pulmonary Symptoms or Complaints Cardiac & Pulmonary Exam Cardiac Exam: Normal S1/S2 Heart Sounds Pulmonary Exam: Clear Bilateral Breath Sounds Implantable Cardiac Device Does patient have a Pacemaker or an ICD?: No Airway Exam Known Difficult Airway: No Mallampati Class: 2 Mouth Opening: Normal (> 3cm) Thyromental Distance: Greater than 3 cm Neck Range of Motion: Full ROM Neck Circumference: Normal Teeth Condition: Normal Dentition ASA Classification ASA Score: ASA 2 Emergency Case?: No NPO Status NPO Status: NPO Clears >2 hours, Solids >8 hours Anesthesia Plan Resuscitation Status: Full Code Anesthesia Technique: General Anesthesia Airway Planned: Natural Airway Monitors Used: Standard Monitors Preoperative Comments:: 70-year-old male with a history of hypertension, hypothyroidism, prediabetes, and BPH, who presents for colonoscopy. His last colonoscopy was in 2019, which was remarkable for a tubular adenomatous polyp.
[2025-06-14 07:04] VITALS: BMI 28.1
--- NOTE | 2025-06-14 08:02 | BOWEL_PTH ---
PATIENT: Henrique Balderas LOC: [facility] U#:[id number] AGE/SX: 70/M ROOM: RE06/14/[address]: Annika Duncan MD : 1955 BED: DIS: 06/14/2025 SPEC #: [id number] RECD: 06/14/25 12:54 STATUS: TRUONG REGarrett #: [id number] MARINO: 06/14/25 08:[address]: Annika Duncan DEPT: Surgical Specimen RECD BY: Tori Ernandez ENTERED: 06/14/25 12:57 SP TYPE: Bowel OTHR DR: CROW Luna Tissues: 1 - BIOPSY BOWEL 2 - BIOPSY BOWEL Procedures: GROSS AND MICRO LEVEL 4 Comments: [id number]
[2025-06-14 08:11] VITALS: BP 96/66; PULSE 70; RESP 14; TEMP 36.1; O2SAT 98
--- NOTE | 2025-06-14 08:18 | W.PM.DSUDISC ---
Date of service: 06/14/25 Discharge Plan Disposition Patient Disposition: Home Condition: Stable Discharge Details Attending Provider: Annika Duncan Primary Care Provider: Alis Reed Home Meds and New Rx's Prescriptions: Continued multivit with min-folic acid [Centrum Adult 50 Fresh-Fruity] 120 mcg tablet,chewable 1 tab PO DAILY sildenafil [Viagra] 50 mg tablet 50 - 100 mg PO DAILY PRN (Reason: sexual activity) Qty: 30 0RF Rx Instructions: administer 1 to 4 hours before activity lisinopril 20 mg tablet 20 mg PO DAILY Qty: 90 3RF omega-3 fatty acids-fish oil 300-1,000 mg capsule 1 cap PO DAILY levothyroxine 125 mcg capsule 125 mcg PO DAILY Qty: 90 3RF Discharge Instructions Additional Instructions: Two tiny polyps seen and removed today. I predict your next colonoscopy will be in 5 years, but I will reach out by mail to confirm once the polyp biopsies are complete. Excellent prep! Take care. Stand Alone Forms: Anesthesia Discharge Inst., Colonoscopy Post Instructions, [facility] (DS[facility]), Portal Information Activity:: Activity as Tolerated Diet:: As Tolerated Discharge Orders Discharge Orders: Discharge Order (Routine); Ordered 06/14/25 Ordered By: Annika Duncan DS: Diagnosis Discharge Diagnosis (1) Encounter for colonoscopy due to history of adenomatous colonic polyps: Status: Acute
--- NOTE | 2025-06-14 08:20 | W.COLOREPORT ---
Date of service: 06/14/25 Time of Service: 08:21 Colonoscopy Report Date of procedure: 06/14/25 Pre-op diagnosis general: History of colon polyps Post-op diagnosis procedure note: same (1. sigmoid polyp. 2. rectum polyp. 3. diverticulosis. ) Procedure: Colonoscopy with cold forcep polypectomy Surgeon: Annika Duncan Anesthesia Type: General:No Airway Estimated blood loss (mL): 2 Pathology: other Complications: None Indications: History of tubular adenoma Prep: Miralax/Dulcolax (excellent) Procedure Description: Informed consent was obtained and the patient was taken to the procedure area. The patient was placed in left lateral decubitus position on the procedure table. Timeout was performed. Anesthesia was induced. A lubricated colonoscope was inserted through the anus and passed to the cecum. The cecum was identified by the ileocecal valve and the appendiceal orifice. The scope was then slowly withdrawn and the colonic and rectal mucosa examined. TI intubated and examined. Mouth of valve was narrowed but appears normal without mass lesion or polyp. No ulceration. Sigmoid polyp 5mm sessile excised with cold forceps. rectum polyp 3mm sessile excised with cold forceps. Simoid diverticulosis was seen. The scope was retroflexed in the anorectal junction examined. Uncomplicated internal hemorrhoids present. Assessment and plan: History of polyps sigmoid polyp rectum polyp sigmoid diverticulosis Two small polyps seen and removed. Timing of next colonoscopy will depend on path of polyps.
[2025-06-14 08:48] VITALS: BP 139/67; PULSE 60; RESP 14; TEMP 36.5; O2SAT 98
--- NOTE | 2025-06-14 10:15 | W.ANESPOSTOP ---
Postoperative Evaluation Date, Time and Location Date Performed: 06/14/25 Time Performed: 08:48 Patient Location: Day Surgery Unit Vital Signs Most Recent Imported Vital Signs: Most Recent Vital Signs Temp Pulse Resp BP Pulse Ox 36.5 C 60 14 139/67 98 06/14/25 08:48 06/14/25 08:48 06/14/25 08:48 06/14/25 08:48 06/14/25 08:48 Pain Score Most Recent Pain Score: Most Recent Pain Score Pain Level 0 06/14/25 08:48 Assessment Mental Status: Awake (Alert & Oriented to Patient Baseline) Airway and Respiratory Function: Patent airway with normal (patient baseline) respiratory exam Cardiovascular Function: Hemodynamically Stable Hydration Status: Adequately Hydrated Nausea & Vomiting: No Nausea or Vomiting Pain: Pt. Denies Any Pain Peripheral Nerve Block: Patient did not receive a nerve block
== END 2025-06-14 08:56 | disposition home or self-care (01) ==
LOC: SUR 06:08
PROVIDERS: PCP Nurse Practitioner Family; Visit Provider Surgery
PROC: 0DJD8ZZ Inspection of Lower Intestinal Tract, Via Natural or Artificial Opening Endoscopic (ICD-10-PCS; CPT 45378; principal; 2025-06-14 07:30)
DX: Z12.11 Encounter for screening for malignant neoplasm of colon (principal); Z86.0101 Personal history of adenomatous and serrated colon polyps; K63.5 Polyp of colon; K62.1 Rectal polyp; K57.30 Diverticulosis of large intestine without perforation or abscess without bleeding; I10 Essential (primary) hypertension; E03.9 Hypothyroidism, unspecified; N40.0 Benign prostatic hyperplasia without lower urinary tract symptoms
CPT/HCPCS: 45380; 88305; J2704

== ENCOUNTER → 2025-07-09 13:56 | Outpatient (BNVA) | payer MEDICARE, SELFPAY | PROVIDERS: PCP Nurse Practitioner Family; Referring Provider Nurse Practitioner Family; Visit Provider Student in an Organized Health Care Education/Training Program | DX: G56.03 Carpal tunnel syndrome, bilateral upper limbs (principal) | CPT/HCPCS: 99213 ==